=== PATIENT | female | born 1930 | race Hispanic/Latino ===

== ENCOUNTER → 2017-09-06 | Outpatient (CLI) | payer OTHER | END | disposition home or self-care (01) | LOC: SHCH 09:19 | PROVIDERS: ATTEND Internal Medicine Cardiovascular Disease | DX: I35.0 Nonrheumatic aortic (valve) stenosis (principal) | CPT/HCPCS: 93306 ==

== ENCOUNTER → 2019-04-05 | Outpatient (CLI) | payer OTHER | END | disposition home or self-care (01) | LOC: OIH 14:19 | PROVIDERS: ATTEND Internal Medicine Cardiovascular Disease | DX: Z13.6 Encounter for screening for cardiovascular disorders (principal) | CPT/HCPCS: 75571 ==

== ENCOUNTER → 2019-04-15 | Outpatient (CLI) | payer OTHER | END | disposition home or self-care (01) | LOC: SHCH 13:44 | PROVIDERS: ATTEND Internal Medicine Cardiovascular Disease | DX: I08.0 Rheumatic disorders of both mitral and aortic valves (principal) | CPT/HCPCS: 93306 ==

== ENCOUNTER → 2019-04-17 | Outpatient (CLI) | payer OTHER | END | disposition home or self-care (01) | LOC: SHCH 14:04 | PROVIDERS: ATTEND Internal Medicine Cardiovascular Disease | DX: R60.9 Edema, unspecified (principal) | CPT/HCPCS: 93970 ==

== ENCOUNTER 2020-08-15 18:23 | Inpatient (IN) | payer OTHER ==
[~2020-08-15] VITALS: Ht 149.9 cm; Wt 97.1 kg
[2020-08-15 19:18] LABS: BASOPHILS % (AUTO) 0.5 % (0.0-5.0); EOSINOPHILS % (AUTO) 6.2 % (0.0-8.0); HEMATOCRIT 34.2 % (36-48); LYMPHOCYTES % (AUTO) 16.4 % (21.0-51.0); MEAN CORPUSCULAR HEMOGLOBIN 27.5 pg (27.0-33.0); MEAN CORPUSCULAR HGB CONC 29.5 g/dL (32.0-36.0); MEAN CORPUSCULAR VOLUME 93.2 fL (79-99); MONOCYTES % (AUTO) 10.8 % (3.0-13.0); NEUTROPHILS % (AUTO) 65.8 % (40.0-77.0); PLATELET COUNT (AUTO) 186 K/uL (130-400); RED BLOOD CELL COUNT(AUTO) 3.67 MIL/uL (4.00-5.50); RED CELL DISTRIBUTION WIDTH 16.9 % (11.0-15.5); WHITE BLOOD COUNT (AUTO) 6.1 K/uL (4.8-10.8)
[2020-08-15 19:31] LABS: INR 1.06 (0.85-1.15); PROTHROMBIN TIME 11.3 SEC (9.6-11.6)
[2020-08-15 19:33] LABS: PARTIAL THROMBOPLASTIN TIME 29.1 SEC (26.3-35.5)
[2020-08-15 19:43] LABS: B-TYPE NATRIURETIC PEPTIDE 765 pg/mL (0-100)
[2020-08-15 19:45] LABS: ABG BASE EXCESS -11.9 mmol/L (-2.0-3.0); ABG HCO3 14.6 mmol/L (21.0-28.0); ABG OXYGEN SATURATION 92.9 % (95.0-99.0); ABG PCO2 36 mmHg (32-45)
[2020-08-15 19:45] LABS: ALBUMIN 2.8 g/dL (3.5-5.0); BILIRUBIN,TOTAL 0.4 mg/dL (0.2-1.0); TOTAL PROTEIN, SERUM 6.1 g/dL (6.0-8.3)
[2020-08-15 19:47] LABS: POTASSIUM 6.5 mmol/L (3.5-5.1)
[2020-08-15] MEDS ORDERED: ALBUTEROL 0.083% 2.5 MG/3 ML INH IH ONE (19:50)
[2020-08-15] MEDS ORDERED: CALCIUM GLUC 1GM/10ML VIAL IV ONE (19:51)
[2020-08-15] MEDS ORDERED: 0.9%NACL 50ML 50 ML IV ONE (19:52)
[2020-08-15] MEDS ORDERED: DiphenhydrAMINE HCL 50 MG/ML VIAL IV PRN (21:30)
[2020-08-15] MEDS ORDERED: ACETAMINOPHEN 325 MG TAB PO PRN (21:30)
[2020-08-15] MEDS ORDERED: ONDANSETRON 4MG INJ IV PRN (21:30)
[2020-08-15] MEDS ORDERED: HYDRALAZINE 20MG/ML VIAL IV PRN (21:30)
[2020-08-15] MEDS ORDERED: DEXTROSE 50%-WATER 50 ML DISP.SYRIN IV ONE (21:41)
[2020-08-15] MEDS ORDERED: AZITHROMYCIN 500MG+NS 250ML 250 ML IV ONE (21:41)
[2020-08-15] MEDS ORDERED: CEFTRIAXONE 1G VIAL ONE (21:41)
[2020-08-15] MEDS ORDERED: SODIUM BICARB 50MEQ 50ML VIAL 50 ML ONE (21:41)
[2020-08-15] MEDS ORDERED: INSULIN HUMULIN R 100 UNIT/ML 3ML ONE (21:42)
[2020-08-15] MEDS: FUROSEMIDE 20MG VIAL IV SCH ×2 (21:45)
[2020-08-15] MEDS ORDERED: KAYEXALATE 15GM/60ML ONE (22:21)
[2020-08-15 22:54] LABS: BILIRUBIN,URINE Negative (NEGATIVE); COLOR,URINE Yellow (YELLOW); GLUCOSE, URINE (UA) 250 mg/dL (NEGATIVE); KETONES,URINE Negative (NEGATIVE); LEUKOCYTE ESTERASE ,URINE Negative (NEGATIVE); NITRATE,URINE Negative (NEGATIVE); OCCULT BLOOD,URINE Small (NEGATIVE); PH,URINE 5.5 (5.0-8.0); PROTEIN,URINE >=1000 mg/dL (NEGATIVE); UROBILINOGEN,URINE 0.2 mg/dL (0.2-1.0)
[2020-08-15 23:05] LABS: APPEARANCE,URINE CLEAR (CLEAR)
[2020-08-15 23:13] LABS: BACTERIA,URINE Few /HPF (None Seen); RBC,URINE 0-1 /HPF (0-1); WBC,URINE 0-1 /HPF (0-1)
[2020-08-15] MEDS ORDERED: FUROSEMIDE 20MG VIAL ONE (23:32)
[2020-08-16 04:52] LABS: BASOPHILS % (AUTO) 0.4 % (0.0-5.0); EOSINOPHILS % (AUTO) 2.8 % (0.0-8.0); HEMATOCRIT 31.9 % (36-48); LYMPHOCYTES % (AUTO) 13.3 % (21.0-51.0); MEAN CORPUSCULAR HEMOGLOBIN 27.5 pg (27.0-33.0); MEAN CORPUSCULAR HGB CONC 29.2 g/dL (32.0-36.0); MEAN CORPUSCULAR VOLUME 94.4 fL (79-99); MONOCYTES % (AUTO) 9.4 % (3.0-13.0); NEUTROPHILS % (AUTO) 73.7 % (40.0-77.0); PLATELET COUNT (AUTO) 167 K/uL (130-400); RED BLOOD CELL COUNT(AUTO) 3.38 MIL/uL (4.00-5.50); RED CELL DISTRIBUTION WIDTH 16.8 % (11.0-15.5); WHITE BLOOD COUNT (AUTO) 5.6 K/uL (4.8-10.8)
[2020-08-16 05:02] LABS: POTASSIUM 5.8 mmol/L (3.5-5.1)
[2020-08-16 05:45] LABS: CREATININE 14.2 mg/dL (0.5-1.5)
[2020-08-16] MEDS ORDERED: FAMOTIDINE 20MG VIAL IV ONE (08:22)
[2020-08-16] MEDS ORDERED: FAMOTIDINE 20MG VIAL IV SCH (09:00)
[2020-08-16] MEDS ORDERED: FUROSEMIDE 40 MG TABLET PO SCH (09:00)
[2020-08-16] MEDS: SODIUM BICARB 8.4% 50ML SYRINGE IVP SCH (14:30)
[2020-08-16] MEDS ORDERED: FUROSEMIDE 40MG VIAL ONE ×2 (14:37→21:59)
[2020-08-16] MEDS ORDERED: SODIUM BICARB 50MEQ 50ML VIAL 50 ML ONE ×2 (14:38→14:39)
[2020-08-16] MEDS: CEFTRIAXONE 1G VIAL IVP SCH (21:30)
[2020-08-16] MEDS: AZITHROMYCIN 500MG+NS 250ML 250 ML IV SCH (21:30)
[2020-08-16] MEDS: FUROSEMIDE 20MG VIAL IV SCH ×2 (21:45)
[2020-08-16] MEDS ORDERED: AZITHROMYCIN 500MG+NS 250ML 250 ML IV ONE (21:59)
[2020-08-16] MEDS ORDERED: CEFTRIAXONE 1G VIAL ONE (21:59)
[2020-08-16] MEDS ORDERED: SODIUM BICARBONATE 650 MG TAB ONE (23:02)
[2020-08-17] MEDS: FUROSEMIDE 40MG VIAL IV SCH ×2 (02:30→14:30)
[2020-08-17 06:44] LABS: HEMATOCRIT 34.1 % (36-48); MEAN CORPUSCULAR HEMOGLOBIN 27.4 pg (27.0-33.0); MEAN CORPUSCULAR VOLUME 94.5 fL (79-99); RED BLOOD CELL COUNT(AUTO) 3.61 MIL/uL (4.00-5.50); RED CELL DISTRIBUTION WIDTH 16.8 % (11.0-15.5); WHITE BLOOD COUNT (AUTO) 6.3 K/uL (4.8-10.8)
[2020-08-17 06:59] LABS: POTASSIUM 5.4 mmol/L (3.5-5.1)
[2020-08-17 07:22] LABS: CREATININE 14.1 mg/dL (0.5-1.5)
[2020-08-17] MEDS: SODIUM BICARBONATE 650 MG TAB PO SCH ×3 (09:00→21:00)
[2020-08-17] MEDS ORDERED: SODIUM BICARBONATE 650 MG TAB ONE ×3 (10:06→20:09)
[2020-08-17] MEDS ORDERED: FUROSEMIDE 40MG VIAL ONE (14:27)
[2020-08-17] MEDS: SODIUM BICARB 8.4% 50ML SYRINGE IVP SCH (14:30)
[2020-08-17] MEDS ORDERED: FUROSEMIDE 20MG VIAL ONE (20:09)
[2020-08-17] MEDS ORDERED: AZITHROMYCIN 500MG+NS 250ML 250 ML IV ONE (20:10)
[2020-08-17] MEDS ORDERED: CEFTRIAXONE 1G VIAL ONE (20:10)
[2020-08-17] MEDS: CEFTRIAXONE 1G VIAL IVP SCH (21:30)
[2020-08-17] MEDS: AZITHROMYCIN 500MG+NS 250ML 250 ML IV SCH (21:30)
[2020-08-17] MEDS: FUROSEMIDE 20MG VIAL IV SCH ×2 (21:45)
[2020-08-18] MEDS: FUROSEMIDE 40MG VIAL IV SCH (02:30)
[2020-08-18 05:58] LABS: HEMATOCRIT 34.4 % (36-48); MEAN CORPUSCULAR HEMOGLOBIN 27.9 pg (27.0-33.0); MEAN CORPUSCULAR HGB CONC 29.4 g/dL (32.0-36.0); RED BLOOD CELL COUNT(AUTO) 3.62 MIL/uL (4.00-5.50); RED CELL DISTRIBUTION WIDTH 16.9 % (11.0-15.5); WHITE BLOOD COUNT (AUTO) 6.6 K/uL (4.8-10.8)
[2020-08-18 06:19] LABS: POTASSIUM 5.5 mmol/L (3.5-5.1)
[2020-08-18 06:33] LABS: CREATININE 14.5 mg/dL (0.5-1.5)
[2020-08-18] MEDS ORDERED: PANTOPRAZOLE 40 MG TAB DR ONE (08:23)
[2020-08-18] MEDS ORDERED: SODIUM BICARBONATE 650 MG TAB ONE ×2 (08:23→13:30)
[2020-08-18] MEDS: PANTOPRAZOLE 40 MG TAB DR PO SCH (09:00)
[2020-08-18] MEDS ORDERED: FUROSEMIDE 40MG VIAL ONE (13:31)
[2020-08-18] MEDS ORDERED: CALC667T8 PO (14:11)
[2020-08-18] MEDS ORDERED: CHOL100020 PO (14:11)
[2020-08-18] MEDS ORDERED: CALC0.253 PO (14:11)
[2020-08-18] MEDS ORDERED: FERR-82 PO (14:11)
[2020-08-18] MEDS ORDERED: AMLO-257 PO (14:11)
[2020-08-18] MEDS ORDERED: TRAM50TA4 PO (14:11)
[2020-08-18] MEDS ORDERED: SODI650T PO (14:11)
[2020-08-18] MEDS ORDERED: ATOR20TA65 PO (14:11)
[2020-08-18] MEDS ORDERED: FURO40TA5 PO (14:11)
[2020-08-18] MEDS: SODIUM BICARB 8.4% 50ML SYRINGE IVP SCH (14:30)
[2020-08-18 17:53] VITALS: BP 164/96
[2020-08-18 20:00] VITALS: BP 178/66
[2020-08-18] MEDS: CEFTRIAXONE 1G VIAL IVP SCH ×2 (21:30→21:58)
[2020-08-18] MEDS: AZITHROMYCIN 500MG+NS 250ML 250 ML IV SCH ×2 (21:30→21:58)
[2020-08-18] MEDS: FUROSEMIDE 20MG VIAL IV SCH (21:45)
[2020-08-18] MEDS: SODIUM BICARBONATE 650 MG TAB PO SCH (21:58)
[2020-08-18 23:31] VITALS: BP 129/82
[2020-08-19] MEDS: FUROSEMIDE 40MG VIAL IV SCH (02:18)
[2020-08-19 03:43] VITALS: BP 180/76
[2020-08-19 05:13] LABS: HEMATOCRIT 32.8 % (36-48); MEAN CORPUSCULAR HEMOGLOBIN 27.6 pg (27.0-33.0); MEAN CORPUSCULAR VOLUME 95.3 fL (79-99); RED BLOOD CELL COUNT(AUTO) 3.44 MIL/uL (4.00-5.50); RED CELL DISTRIBUTION WIDTH 16.7 % (11.0-15.5); WHITE BLOOD COUNT (AUTO) 6.4 K/uL (4.8-10.8)
[2020-08-19 05:39] LABS: POTASSIUM 5.7 mmol/L (3.5-5.1)
[2020-08-19 05:48] LABS: CREATININE 14.2 mg/dL (0.5-1.5)
[2020-08-19 07:30] VITALS: BP 147/97
[2020-08-19] MEDS: PANTOPRAZOLE 40 MG TAB DR PO SCH (09:00)
[2020-08-19 11:00] VITALS: BP 162/80
[2020-08-19] MEDS: SODIUM BICARBONATE 650 MG TAB PO SCH ×3 (11:40→21:02)
[2020-08-19] MEDS ORDERED: KAYEXALATE 15GM/60ML ONE (11:53)
[2020-08-19] MEDS ORDERED: KAYEXALATE 15GM/60ML PO SCH (12:00)
[2020-08-19] MEDS ORDERED: LABETALOL 20MG VIAL IV PRN (13:15)
[2020-08-19] MEDS: SODIUM BICARB 8.4% 50ML SYRINGE IVP SCH (14:30)
[2020-08-19 16:00] VITALS: BP 159/69
[2020-08-19 19:32] VITALS: BP 146/100
[2020-08-19] MEDS ORDERED: AZITHROMYCIN 250 MG TABLET PO SCH (20:15)
[2020-08-19] MEDS ORDERED: AZITHROMYCIN 250 MG TABLET PO ONE (20:25)
[2020-08-19] MEDS: CEFTRIAXONE 1G VIAL IVP SCH (21:02)
[2020-08-19 23:32] VITALS: BP 152/91
[2020-08-20 03:40] VITALS: BP 157/77
[2020-08-20 08:00] VITALS: BP 94/74
[2020-08-20] MEDS: PANTOPRAZOLE 40 MG TAB DR PO SCH (11:32)
[2020-08-20] MEDS: SODIUM BICARBONATE 650 MG TAB PO SCH (11:32)
[2020-08-20 12:00] VITALS: BP 145/77
== END 2020-08-20 14:55 | disposition hospice, home (50) | DRG 291 ==
LOC: EDH 18:23 → EDHIP 21:26 → 4DH 08-18 17:44
PROVIDERS: ADMIT Internal Medicine; ATTEND Internal Medicine
DX: I13.2 Hypertensive heart and chronic kidney disease with heart failure and with stage 5 chronic kidney disease, or end stage renal disease (principal); J96.01 Acute respiratory failure with hypoxia; I50.31 Acute diastolic (congestive) heart failure; N18.5 Chronic kidney disease, stage 5; E87.2 Acidosis; J90 Pleural effusion, not elsewhere classified; Z68.41 Body mass index [BMI] 40.0-44.9, adult; E66.01 Morbid (severe) obesity due to excess calories; D63.8 Anemia in other chronic diseases classified elsewhere; E11.22 Type 2 diabetes mellitus with diabetic chronic kidney disease; Z66 Do not resuscitate; Z51.5 Encounter for palliative care; Z20.822 Contact with and (suspected) exposure to COVID-19; N28.1 Cyst of kidney, acquired; E87.5 Hyperkalemia; E03.9 Hypothyroidism, unspecified; R53.81 Other malaise; G47.33 Obstructive sleep apnea (adult) (pediatric); Z79.899 Other long term (current) drug therapy
CPT/HCPCS: 36415; 36600; 71045; 76770; 80048; 80053; 81001; 82550; 82803; 82948; 83605; 83690; 83880; 84145; 84484; 85025; 85027; 85610; 85730; 87040; 87077; 87088; 87186; 87426; 87804; 87880; 93005; 93306; 93356; 99291; G0378; J0456; J0610; J0696; J1815; J1940; J3490; J7070; U0003